=== PATIENT | male | born 1955 | race Caucasian/White ===

== ENCOUNTER 2021-09-02 10:01 | Day surgery (SDC) | payer BC, MEDICARE ==
[2021-09-02] MEDS: Ofloxacin 0.3% Ophth Soln 5 ML Bottle EYERT SCH ×4 (10:34→12:42)
[2021-09-02] MEDS: Brimonidine 0.2% Ophth Soln 5 ML Bottle EYERT SCH ×4 (10:39→12:42)
--- NOTE | 2021-09-02 10:41 | PCM.PREANE ---
Preanesthetic Assessment - Anesthesia/Transfusion/Family Hx Anesthesia History: Prior Anesthesia Without Reaction Family History of Anesthesia Reaction: No Transfusion History: No Prior Transfusion(s) - Review of Systems General: No Symptoms Pulmonary: Other (asthma, stable) Cardiovascular: No Symptoms Gastrointestinal: Other (takes OTC) Other: Reports: Diabetes (am glucose 162) - Physical Assessment NPO Status Date: 09/01/21 NPO Status Time: 21:00 ASA Class: 2 Mental Status: Alert & Oriented x3 Airway Class: Mallampati = 2 Dentition: Reports: Normal Dentition Thyro-Mental Finger Breadths: 3 ROM/Head Extension: Full Lungs: Clear to Auscultation, Normal Respiratory Effort Cardiovascular: Regular Rate, Regular Rhythm - Allergies Allergies/Adverse Reactions: Allergies Allergy/AdvReac Type Severity Reaction Status Date / Time morphine Allergy Cannot Verified 09/01/21 11:29 Remember Sulfa (Sulfonamide Allergy Cannot Verified 09/01/21 11:29 Antibiotics) Remember - Blood Blood Available: No Product(s) Available: None - Anesthesia Plan Pre-Op Medication Ordered: None - Acknowledgements Anesthesia Type Planned: MAC Pt an Appropriate Candidate for the Planned Anesthesia: Yes Alternatives and Risks of Anesthesia Discussed w Pt/Guardian: Yes Pt/Guardian Understands and Agrees with Anesthesia Plan: Yes PreAnesthesia Questionnaire - HOME MEDS Home Medications: Home Meds Albuterol Sulfate [Albuterol Sulfate HFA] 09/01/21 [History] Fenofibrate Nanocrystallized [Tricor] 09/01/21 [History] Fluticasone Propionate [Flonase] 09/01/21 [History] Fluticasone Propionate [Flovent HFA] 09/01/21 [History] Insulin Aspart [Novolog Flexpen] 09/01/21 [History] Insulin Glargine/Lixisenatide [Soliqua 100 Unit-33 Mcg/ml Pen] 09/01/21 [History] Omeprazole Magnesium [Prilosec Otc] 09/01/21 [History] metFORMIN [Glucophage XR] 09/01/21 [History] - CURRENT (IN HOUSE) MEDS Current Meds: Current Medications Brimonidine Tartrate (Brimonidine 0.2% Ophth Soln 5 Ml Bottle) 0 ml EYERT ASDIRECTED MOY Stop: 09/02/21 18:00 Cefuroxime Sodium (Cefuroxime 10 Mg/Ml Syringe) 0 mg EYERT ASDIRECTED MOY Stop: 09/02/21 18:00 Lidocaine HCl (Lidocaine 1% Pf 2 Ml Sdv) 0 ml INJECT ASDIRECTED MOY Stop: 09/02/21 18:00 Ofloxacin (Ofloxacin 0.3% Ophth Soln 5 Ml Bottle) 0 ml EYERT ASDIRECTED MOY Stop: 09/02/21 18:00 Last Admin: 09/02/21 10:34 Dose: 1 drop Documented by: Phenylephrine HCl (Phenylephrine 2.5% Ophth Soln 2 Ml Bot) 0 ml EYERT ASDIRECTED MOY Stop: 09/02/21 18:00 Pilocarpine HCl (Pilocarpine 4% Ophth Soln 15 Ml Bot) 0 ml EYERT ASDIRECTED MOY Stop: 09/02/21 18:00 Tetracaine HCl (Tetracaine Hcl/Pf 0.5% 4 Ml Bottle) 0 ml EYEBOTH ASDIRECTED MOY Stop: 09/02/21 18:00 Tropicamide (Tropicamide 1% Ophth Soln 15 Ml Bottle) 0 ml EYERT ASDIRECTED MOY Stop: 09/02/21 18:00
[2021-09-02] MEDS: Phenylephrine 2.5% Ophth Soln 2 ML Bot EYERT SCH ×6 (10:44→12:41)
[2021-09-02] MEDS: Tropicamide 1% Ophth Soln 15 ML Bottle EYERT SCH ×4 (10:49→11:33)
[2021-09-02] MEDS: Tetracaine HCl/PF 0.5% 4 ML Bottle EYEBOTH SCH ×5 (11:38→12:41)
[2021-09-02] MEDS: Lidocaine 1% PF 2 ML SDV INJECT SCH ×2 (12:22→12:41)
[2021-09-02] MEDS: Cefuroxime 10 MG/ML SYRINGE EYERT SCH ×2 (12:40→12:42)
[2021-09-02] MEDS: Pilocarpine 4% Ophth Soln 15 ML Bot EYERT SCH ×2 (12:41→12:42)
--- NOTE | 2021-09-02 12:53 | PCM48HPAN ---
Post Anesthesia Note - EVALUATION WITHIN 48HRS OF ANESTHETIC Vital Signs in Normal Range: Yes Patient Participated in Evaluation: Yes Respiratory Function Stable: Yes Airway Patent: Yes Cardiovascular Function Stable: Yes Hydration Status Stable: Yes Pain Control Satisfactory: Yes Nausea and Vomiting Control Satisfactory: Yes Mental Status Recovered: Yes
== END 2021-09-02 13:01 | disposition home or self-care (01) ==
LOC: JD.SDS 10:01
PROVIDERS: ATTEND Ophthalmology
DX: E11.36 Type 2 diabetes mellitus with diabetic cataract (principal); H25.813 Combined forms of age-related cataract, bilateral; H40.003 Preglaucoma, unspecified, bilateral; H16.103 Unspecified superficial keratitis, bilateral; H16.223 Keratoconjunctivitis sicca, not specified as Sjogren's, bilateral; H43.813 Vitreous degeneration, bilateral; H21.81 Floppy iris syndrome; H21.41 Pupillary membranes, right eye; J45.909 Unspecified asthma, uncomplicated; K21.9 Gastro-esophageal reflux disease without esophagitis; Z79.899 Other long term (current) drug therapy; Z79.84 Long term (current) use of oral hypoglycemic drugs; Z79.4 Long term (current) use of insulin; Z88.5 Allergy status to narcotic agent
CPT/HCPCS: 66982; C1780; J0697; A9270-GY

== ENCOUNTER 2021-09-30 10:54 | Day surgery (SDC) | payer MEDICARE ==
[2021-09-30] MEDS ORDERED: Lactated Ringers 1,000 ML IV SCH (11:30)
--- NOTE | 2021-09-30 12:09 | PCM.PREANE ---
Preanesthetic Assessment - Procedure Proposed Procedure: cataract let - Anesthesia/Transfusion/Family Hx Anesthesia History: Prior Anesthesia Without Reaction Family History of Anesthesia Reaction: No Transfusion History: No Prior Transfusion(s) - Review of Systems General: No Symptoms Pulmonary: No Symptoms Cardiovascular: No Symptoms Gastrointestinal: No Symptoms Neurological: No Symptoms Other: Reports: Diabetes, Sinus Problem (phlegm i throat today took sudafed) - Physical Assessment NPO Status Date: 09/30/21 NPO Status Time: 00:30 Vital Signs: 162/77 87 95% 17 97.5 Height: 6 ft Weight: 102.058 kg ASA Class: 2 Mental Status: Alert & Oriented x3 Airway Class: Mallampati = 2 Dentition: Reports: Normal Dentition Thyro-Mental Finger Breadths: 3 Mouth Opening Finger Breadths: 3 ROM/Head Extension: Full Lungs: Clear to Auscultation, Normal Respiratory Effort Cardiovascular: Regular Rate, Regular Rhythm - Allergies Allergies/Adverse Reactions: Allergies Allergy/AdvReac Type Severity Reaction Status Date / Time morphine Allergy Cannot Verified 09/29/21 14:23 Remember Sulfa (Sulfonamide Allergy Cannot Verified 09/29/21 14:23 Antibiotics) Remember - Blood Blood Available: No - Acknowledgements Anesthesia Type Planned: MAC Pt an Appropriate Candidate for the Planned Anesthesia: Yes Alternatives and Risks of Anesthesia Discussed w Pt/Guardian: Yes Pt/Guardian Understands and Agrees with Anesthesia Plan: Yes PreAnesthesia Questionnaire Cardiovascular History: Reports: High Cholesterol Respiratory History: Reports: Asthma Gastrointestinal History: Reports: GERD Musculoskeletal History: Reports: Arthritis Endocrine/Metabolic History: Reports: Diabetes, Type II - SUBSTANCE USE Tobacco Use Status *Q: Former Tobacco User Tobacco Use Within Last Twelve Months: No Second Hand Smoke Exposure: No Days Per Week of Alcohol Use: 0 Recreational Drug Use History: No - HOME MEDS Home Medications: Home Meds Albuterol Sulfate [Albuterol Sulfate HFA] 1 puff INH DAILY PRN 09/01/21 [History] Fenofibrate Nanocrystallized [Tricor] 1 tab PO DAILY 09/01/21 [History] Fluticasone Propionate [Flonase] 1 spray IN DAILY 09/01/21 [History] Fluticasone Propionate [Flovent HFA] 1 puff INH DAILY 09/01/21 [History] Insulin Aspart [Novolog Flexpen] 0 unit SQ ASDIRECTED 09/01/21 [History] Insulin Glargine/Lixisenatide [Soliqua 100 Unit-33 Mcg/ml Pen] 0 unit SQ ASDI RECTED 09/01/21 [History] Omeprazole Magnesium [Prilosec Otc] 20 mg PO DAILY 09/01/21 [History] metFORMIN [Glucophage XR] 500 mg PO DAILY 09/01/21 [History] - CURRENT (IN HOUSE) MEDS Current Meds: Current Medications Brimonidine Tartrate (Brimonidine 0.2% Ophth Soln 5 Ml Bottle) 0 ml EYELF ASDIRECTED MOY Stop: 09/30/21 23:00 Cefuroxime Sodium (Cefuroxime 10 Mg/Ml Syringe) 0 mg EYELF ASDIRECTED MOY Stop: 09/30/21 23:00 Lidocaine HCl (Lidocaine 1% Pf 2 Ml Sdv) 0 ml INJECT ASDIRECTED MOY Stop: 09/30/21 23:00 Ofloxacin (Ofloxacin 0.3% Ophth Soln 5 Ml Bottle) 0 ml EYELF ASDIRECTED MOY Stop: 09/30/21 23:00 Phenylephrine HCl (Phenylephrine 2.5% Ophth Soln 2 Ml Bot) 0 ml EYELF ASDIRECTED MOY Stop: 09/30/21 23:00 Pilocarpine HCl (Pilocarpine 4% Ophth Soln 15 Ml Bot) 0 ml EYELF ASDIRECTED MOY Stop: 09/30/21 23:00 Tetracaine HCl (Tetracaine Hcl/Pf 0.5% 4 Ml Bottle) 0 ml EYEBOTH ASDIRECTED MOY Stop: 09/30/21 23:00 Tropicamide (Tropicamide 1% Ophth Soln 15 Ml Bottle) 0 ml EYELF ASDIRECTED MOY Stop: 09/30/21 23:00
[2021-09-30] MEDS: Ofloxacin 0.3% Ophth Soln 5 ML Bottle EYELF SCH ×4 (12:16→13:25)
[2021-09-30] MEDS ORDERED: Ondansetron 4 MG/2 ML SDV ONE (12:22)
[2021-09-30] MEDS ORDERED: Midazolam 1 MG/ML 2 ML SDV ONE (12:22)
[2021-09-30] MEDS: Brimonidine 0.2% Ophth Soln 5 ML Bottle EYELF SCH ×4 (12:24→13:25)
[2021-09-30] MEDS ORDERED: Sodium Chloride 0.9% 10 ML Syringe FLUSH PRN (12:26)
[2021-09-30] MEDS: Phenylephrine 2.5% Ophth Soln 2 ML Bot EYELF SCH ×6 (12:31→13:15)
[2021-09-30] MEDS: Tropicamide 1% Ophth Soln 15 ML Bottle EYELF SCH ×4 (12:35→12:59)
[2021-09-30] MEDS: Tetracaine HCl/PF 0.5% 4 ML Bottle EYEBOTH SCH ×5 (13:01→13:15)
[2021-09-30] MEDS: Lidocaine 1% PF 2 ML SDV INJECT SCH ×2 (13:10→13:16)
[2021-09-30] MEDS: Cefuroxime 10 MG/ML SYRINGE EYELF SCH ×2 (13:16→13:23)
[2021-09-30] MEDS: Pilocarpine 4% Ophth Soln 15 ML Bot EYELF SCH ×2 (13:16→13:25)
--- NOTE | 2021-09-30 13:26 | PCM48HPAN ---
Post Anesthesia Note - EVALUATION WITHIN 48HRS OF ANESTHETIC Vital Signs in Normal Range: Yes Patient Participated in Evaluation: Yes Respiratory Function Stable: Yes Airway Patent: Yes Cardiovascular Function Stable: Yes Hydration Status Stable: Yes Pain Control Satisfactory: Yes Nausea and Vomiting Control Satisfactory: Yes Mental Status Recovered: Yes Vital Signs: Last Vital Signs Temp 36.4 C 09/30/21 11:38 Pulse 87 09/30/21 11:38 Resp 17 09/30/21 11:38 BP 136/78 09/30/21 12:20 Pulse Ox 95 09/30/21 11:38
== END 2021-09-30 13:53 | disposition home or self-care (01) ==
LOC: JD.SDS 10:54
PROVIDERS: ATTEND Ophthalmology
DX: E11.36 Type 2 diabetes mellitus with diabetic cataract (principal); H25.812 Combined forms of age-related cataract, left eye; H52.31 Anisometropia; H43.813 Vitreous degeneration, bilateral; H40.003 Preglaucoma, unspecified, bilateral; H26.9 Unspecified cataract; H21.81 Floppy iris syndrome; H21.42 Pupillary membranes, left eye; Z98.890 Other specified postprocedural states; Z87.891 Personal history of nicotine dependence; Z79.899 Other long term (current) drug therapy; Z79.84 Long term (current) use of oral hypoglycemic drugs; Z79.4 Long term (current) use of insulin; Z88.5 Allergy status to narcotic agent; Z88.2 Allergy status to sulfonamides; Z96.1 Presence of intraocular lens
CPT/HCPCS: 66982; J0697; J2250; J2405; J7120; U0002; A9270-GY; C1780

== ENCOUNTER 2024-03-20 00:21 | Emergency (ER) | payer MEDICARE ==
[2024-03-20 00:46] LABS: BASOPHILS PERCENT AUTO 0.2 % (0.0-1.0); EOSINOPHILS ABSOLUTE AUTO 0.1 K/mm3 (0.0-0.4); EOSINOPHILS PERCENT AUTO 1.6 % (0.0-6.0); HEMATOCRIT 49.3 % (42.0-52.0); HEMOGLOBIN 17.4 gm/dl (14.0-18.0); IMMATURE GRAN ABSOLUTE AUTO 0.01 K/mm3 (0.00-0.05); IMMATURE GRAN PERCENT AUTO 0.2 % (0.0-0.4); LYMPHOCYTES ABSOLUTE AUTO 1.6 K/mm3 (1.0-4.8); LYMPHOCYTES PERCENT AUTO 31.6 % (24.0-44.0); MEAN CORPUSCULAR HEMOGLOBIN 31.3 pg (28.0-32.0); MEAN CORPUSCULAR HGB CONC 35.3 g/dl (32.0-36.0); MEAN CORPUSCULAR VOLUME 88.7 fl (83.0-99.0); MEAN PLATELET VOLUME 10.3 fl (9.4-12.4); MONOCYTES ABSOLUTE AUTO 0.3 K/mm3 (0.0-0.8); MONOCYTES PERCENT AUTO 5.7 % (0.0-8.0); NEUTROPHILS ABSOLUTE AUTO 3.1 K/mm3 (1.8-7.7); NEUTROPHILS PERCENT AUTO 60.7 % (41.0-71.0); PLATELET COUNT,PLT 140 K/mm3 (150-400); RED BLOOD CELL COUNT 5.56 M/mm3 (4.52-5.90); WHITE BLOOD CELL COUNT,WBC 5.07 K/mm3 (3.9-11.3)
[2024-03-20] MEDS: Pantoprazole 40 MG Vial IVPUSH ONE (00:47)
[2024-03-20] MEDS: Sucralfate Suspension 1 GM/10 ML Cup PO ONE (00:47)
[2024-03-20] MEDS: Alum Hydrox/Mag Hydrox/Simeth 30 ML, Lidocaine 2% 15 ML PO ONE (00:47)
[2024-03-20] MEDS: Sodium Chloride 0.9% 10 ML Syringe FLUSH PRN (00:47)
[2024-03-20 01:09] LABS: A/G RATIO 1.2 (1-2); ALBUMIN 4.2 g/dl (3.4-5.0); ANION GAP 17.3 (5-15); BILIRUBIN TOTAL 1.6 mg/dL (0.2-1.0); CALCIUM 9.9 mg/dL (8.5-10.1); EST CRCL DRUG DOSING (CG) 75.3 mL/min; MAGNESIUM 1.6 mg/dL (1.8-2.4); POTASSIUM,K 3.3 mEq/L (3.5-5.1); PROTEIN TOTAL,TP 7.6 g/dl (6.4-8.2)
== END 2024-03-20 01:33 | disposition home or self-care (01) ==
LOC: JD.ED 00:21
DX: K21.00 Gastro-esophageal reflux disease with esophagitis, without bleeding (principal); J45.909 Unspecified asthma, uncomplicated; E78.00 Pure hypercholesterolemia, unspecified; E11.9 Type 2 diabetes mellitus without complications; Z88.5 Allergy status to narcotic agent; Z88.2 Allergy status to sulfonamides; Z79.51 Long term (current) use of inhaled steroids; Z79.4 Long term (current) use of insulin; Z79.84 Long term (current) use of oral hypoglycemic drugs; Z79.899 Other long term (current) drug therapy
CPT/HCPCS: 36415; 71046; 80053; 83735; 84484; 85025; 93005; 96374; 99284; A9270; C9113; J3490; 93010

== ENCOUNTER 2024-06-05 06:43 | Day surgery (SDC) | payer MEDICARE ==
[~2024-06-05 06:43] MED LIST: Sodium Chloride 0.9% 10 ML Syringe FLUSH PRN; Sodium Chloride 0.9% 10 ML Syringe FLUSH SCH
[2024-06-05] MEDS ORDERED: Ondansetron 4 MG/2 ML SDV IVPUSH PRN (06:47)
[2024-06-05] MEDS ORDERED: Midazolam 1 MG/ML 2 ML SDV ONE (07:11)
[2024-06-05] MEDS ORDERED: Propofol 200 MG/20 ML SDV ONE ×2 (07:11)
[2024-06-05] MEDS ORDERED: fentaNYL 100 MCG/2 ML SDV ONE (07:11)
[2024-06-05] MEDS ORDERED: Lidocaine 1% 2 ML ONE (07:12)
[2024-06-05] MEDS: Lactated Ringers 1,000 ML IV SCH (07:15)
[2024-06-05 07:19] LABS: BASOPHILS PERCENT AUTO 0.2 % (0.0-1.0); EOSINOPHILS ABSOLUTE AUTO 0.1 K/mm3 (0.0-0.4); EOSINOPHILS PERCENT AUTO 2.1 % (0.0-6.0); HEMATOCRIT 50.7 % (42.0-52.0); HEMOGLOBIN 17.5 gm/dl (14.0-18.0); IMMATURE GRAN ABSOLUTE AUTO 0.01 K/mm3 (0.00-0.05); IMMATURE GRAN PERCENT AUTO 0.2 % (0.0-0.4); LYMPHOCYTES ABSOLUTE AUTO 1.1 K/mm3 (1.0-4.8); MEAN CORPUSCULAR HEMOGLOBIN 31.3 pg (28.0-32.0); MEAN CORPUSCULAR HGB CONC 34.5 g/dl (32.0-36.0); MEAN CORPUSCULAR VOLUME 90.5 fl (83.0-99.0); MEAN PLATELET VOLUME 10.6 fl (9.4-12.4); MONOCYTES ABSOLUTE AUTO 0.4 K/mm3 (0.0-0.8); MONOCYTES PERCENT AUTO 9.7 % (0.0-8.0); NEUTROPHILS ABSOLUTE AUTO 2.7 K/mm3 (1.8-7.7); NEUTROPHILS PERCENT AUTO 61.8 % (41.0-71.0); PLATELET COUNT,PLT 140 K/mm3 (150-400); WHITE BLOOD CELL COUNT,WBC 4.34 K/mm3 (3.9-11.3)
== END 2024-06-05 10:15 | disposition home or self-care (01) ==
LOC: JD.SDS 06:43
PROVIDERS: ATTEND Surgery
DX: Z12.11 Encounter for screening for malignant neoplasm of colon (principal); D12.3 Benign neoplasm of transverse colon; D12.2 Benign neoplasm of ascending colon; K29.50 Unspecified chronic gastritis without bleeding; K31.7 Polyp of stomach and duodenum; K21.9 Gastro-esophageal reflux disease without esophagitis; K44.9 Diaphragmatic hernia without obstruction or gangrene; K64.4 Residual hemorrhoidal skin tags; K64.8 Other hemorrhoids; E78.5 Hyperlipidemia, unspecified; E66.3 Overweight; I10 Essential (primary) hypertension; E11.9 Type 2 diabetes mellitus without complications; J45.909 Unspecified asthma, uncomplicated; Z79.899 Other long term (current) drug therapy; Z79.4 Long term (current) use of insulin; Z79.84 Long term (current) use of oral hypoglycemic drugs; Z88.2 Allergy status to sulfonamides; Z88.5 Allergy status to narcotic agent; Z87.891 Personal history of nicotine dependence; Z86.010 Personal history of colon polyps; Z80.0 Family history of malignant neoplasm of digestive organs; Z68.28 Body mass index [BMI] 28.0-28.9, adult
CPT/HCPCS: 36415; 43239; 45380; 85025; J2250; J2704; J3010; J7120; J3490